=== PATIENT | female | born 1965 | race Caucasian/White ===

== ENCOUNTER → 2017-12-01 | Outpatient (CLI) | payer BC ==
[~2017-12-01] MED LIST: AMPH25CA PO; HYDR-4383 PO; METO25TA3 PO; MISC-573; RIZA10TA18 PO
--- NOTE | 2017-12-01 10:57 | DIAGNOSTIC IMAGING REPORT ---
CHEST 2 VIEWS ROUTINE CLINICAL HISTORY: PRE OP COMPARISON STUDY: No previous studies for comparison. FINDINGS: The bones soft tissues and hemidiaphragms are normal. The cardiomediastinal silhouette is normal. The lungs are clear. The pulmonary vasculature is normal. IMPRESSION: Negative chest. The above report was generated using voice recognition software. It may contain grammatical, syntax or spelling errors. Electronically signed by: Kurt Up M.D. 12/01/2017 10:55 AM Dictated Date/Time: 12/01/2017 10:55 AM
[2017-12-01 12:21] LABS: BASO % 0.3 %; BASO ABS # 0.02 K/uL (0-0.2); EOS % 5.5 %; EOS ABS # 0.35 K/uL (0-0.5); HEMATOCRIT 36.4 % (37-47); HEMOGLOBIN 11.8 g/dL (12.0-16.0); IG# 0.01 K/uL (0.00-0.02); LYMPH % 33.6 %; LYMPH ABS # 2.12 K/uL (1.2-3.4); MEAN CELL VOLUME 95.5 fL (80-100); MEAN CORPUSCULAR HGB CONC 32.4 g/dl (32-36); MEAN PLATELET VOLUME 10.5 fL (7.4-10.4); MONO % 7.1 %; MONO ABS # 0.45 K/uL (0.11-0.59); NEUT % 53.3 %; NEUT ABS # 3.36 K/uL (1.4-6.5); PLATELET COUNT 280 K/uL (130-400); RED CELL DISTRIBUTION WIDTH SD 52.2 fL (36.4-46.3); WHITE BLOOD COUNT 6.31 K/uL (4.8-10.8)
[2017-12-01 12:38] LABS: ALBUMIN 3.5 gm/dl (3.4-5.0); ALKALINE PHOSPHATASE 75 U/L (45-117); ALT/SGPT 21 U/L (12-78); AST/SGOT 14 U/L (15-37); BLOOD UREA NITROGEN 19 mg/dl (7-18); CALCIUM 8.6 mg/dl (8.5-10.1); CARBON DIOXIDE 28 mmol/L (21-32); CHOLESTEROL 205 mg/dl (0-200); CREATININE 0.79 mg/dl (0.60-1.20); GLUCOSE 77 mg/dl (70-99); LDL CHOLESTEROL CALCULATED 95 mg/dl; POTASSIUM 4.7 mmol/L (3.5-5.1); SODIUM 134 mmol/L (136-145); TOTAL PROTEIN 7.4 gm/dl (6.4-8.2)
== END | disposition home or self-care (01) ==
LOC: C.LAB 09:56
PROVIDERS: ATTEND Family Medicine
DX: I10 Essential (primary) hypertension (principal); E78.00 Pure hypercholesterolemia, unspecified; Z01.818 Encounter for other preprocedural examination

== ENCOUNTER 2017-12-09 06:14 | Inpatient (IN) | payer BC ==
[2017-11-30 15:38] VITALS: BMI 24.0
--- NOTE | 2017-12-08 16:01 | HISTORY & PHYSICAL EXAMINATION ---
DATE OF ADMISSION: 12/09/2017 CHIEF COMPLAINT: Back and lower extremity difficulty, paresthesias, weakness, and instability. She is being preoped for a posterior lumbar interbody fusion L4-L5. She has failed conservative care. She has had 6-9 months of pain, it is incapacitating. She has a completely degenerative segment at L4-L5 lumbar spine. PAST MEDICAL HISTORY: Hypertension, migraine. PAST SURGICAL HISTORY: . ALLERGIES: Negative. CURRENT MEDICATIONS: Include metoprolol. FAMILY HISTORY: Positive for rheumatoid; father with Sindhu Gehrig's disease. SOCIAL HISTORY: She is . Minimal alcohol. No tobacco. Active. REVIEW OF SYSTEMS: She has back hip pain. Denies any fevers, sweats, chills, weight loss, gain or malaise. Denies chest pain, palpitations. No asthma, wheezing. No nausea, vomiting or memory loss. She has back and musculoskeletal issues consistent with her diagnosis. OBJECTIVE: GENERAL: She is 5 feet 1 inches, 130 pounds, in distress. VITAL SIGNS: Blood pressure 120/80, pulse 80. HEENT: Essentially normal. CARDIAC: Normal S1, S2. LUNGS: Clear. ABDOMEN: Soft, nontender, no referred pain. Structural testing. She has profound decreased range of motion, pain with percussion, difficulty with ambulation. Hip: Normal. Knee examination: Normal. Pain on the buttock and lower extremities. No weakness. Slight sensory loss. MRI reviewed. Plain x-rays reviewed. She has a degenerative spinal segment L4-L5 of severity. IMPRESSION: Spinal stenosis and lumbar instability, L4-L5. PLAN: Includes a PLIF procedure, lumbar spine tomorrow at [facility] on 12/09/2017.
[2017-12-09] VITALS (9 sets, daily range): BP systolic 119–150; BP diastolic 67–98; PULSE 56–91; TEMP 36.4–36.7; O2SAT 94–100; Ht 154.9 cm; Wt 59.1 kg
[~2017-12-09] VITALS: Ht 154.9 cm; Wt 59.1 kg
[~2017-12-09 06:14] MED LIST changes: +CEFAZOLIN 2000MG IV PUSH 15 ML IV SCH; -HYDR-4383 PO; +LACTATED RINGER'S 1000ML 1,000 ML IV SCH; -MISC-573; +NSS 1000ML IV SCH
[2017-12-09] MEDS ORDERED: DEXAMETHASONE SOD INJ 4 MG/ML VIAL ONE (07:03)
[2017-12-09] MEDS ORDERED: PHENYLEPHRINE HCL INJ 10 MG/ML VIAL ONE (07:03)
[2017-12-09] MEDS ORDERED: PROPOFOL IV EMULSION 10 MG/ML 20 ML VIAL ONE (07:03)
[2017-12-09] MEDS ORDERED: GLYCOPYRROLATE INJ 0.2 MG/ML VIAL ONE (07:03)
[2017-12-09] MEDS ORDERED: ONDANSETRON INJ 2 MG/ML 2 ML VIAL ONE (07:03)
[2017-12-09] MEDS ORDERED: EpHEDrine SULFATE INJ 50 MG/ML AMP ONE (07:03)
[2017-12-09] MEDS ORDERED: SUCCINYLCHOLINE CHLORIDE 20 MG/ML 10 ML VIAL IV ONE (07:03)
[2017-12-09] MEDS ORDERED: NEOSTIGMINE METHYLSULFATE 5 MG/5 ML SYR ONE (07:03)
[2017-12-09] MEDS ORDERED: LIDOCAINE HCL 2% 2 ML VIAL (20MG/ML) ONE (07:03)
[2017-12-09] MEDS ORDERED: FENTANYL CITRATE INJ 50 MCG/1 ML 2 ML VIAL ONE ×2 (07:03→07:04)
[2017-12-09] MEDS ORDERED: MIDAZOLAM HCL 1 MG/ML 2ML VIAL ONE (07:04)
[2017-12-09] MEDS ORDERED: SCOPOLAMINE 1.5 MG TDSY TD ONE (07:10)
[2017-12-09] MEDS ORDERED: THROMBIN 5000 UNITS KIT ONE (07:12)
[2017-12-09] MEDS ORDERED: BUPIVACAINE/EPINEPHRINE 0.5% MPF 1:200,000 30 ML VIAL ONE (07:12)
[2017-12-09] MEDS ORDERED: GELATIN SPONGE SZ 100 ONE ×2 (07:12→09:53)
[2017-12-09] MEDS ORDERED: BACITRACIN 50000 UNIT VIAL ONE (07:12)
[2017-12-09] MEDS ORDERED: VANCOMYCIN HCL 1000MG/20ML VIAL ONE (07:12)
[2017-12-09] MEDS ORDERED: SCOPOLAMINE 1.5 MG TDSY TD SCH (07:15)
--- NOTE | 2017-12-09 07:19 | History & Physical Bridge Note ---
H&P Re-Evaluation Bridge Note: I have examined the patient, reviewed the History & Physical and in the interval since the performance of the History & Physical I have noted the following changes of clinical significance: No changes noted
[2017-12-09] MEDS ORDERED: THROMBIN FOR SOLN 20000 UNIT KIT ONE (07:33)
[2017-12-09] MEDS: CHECK SCOPOLAMINE PATCH PLACEMENT SCH ×3 (08:00→23:46)
[2017-12-09] MEDS ORDERED: HYDROmorphone INJ 2 MG/ML SYR/VIAL ONE (08:03)
[2017-12-09] MEDS ORDERED: PROMETHAZINE HCL INJ 12.5 MG in SODIUM CHLORIDE 0.9% 50ML 50 ML IV PRN ×2 (08:30→10:30)
[2017-12-09] MEDS ORDERED: FENTANYL CITRATE INJ 50 MCG/1 ML 2 ML VIAL IV PRN (08:30)
[2017-12-09] MEDS ORDERED: ATROPINE SULFATE 0.1 MG/ML 5ML SYR IV PRN (08:30)
[2017-12-09] MEDS ORDERED: HYDROmorphone INJ 1 MG/ML SYR IV PRN (08:30)
[2017-12-09] MEDS ORDERED: EpHEDrine SULFATE INJ 50 MG/ML AMP IV PRN (08:30)
[2017-12-09] MEDS ORDERED: ONDANSETRON INJ 2 MG/ML 2 ML VIAL IV PRN ×2 (08:30→10:30)
--- NOTE | 2017-12-09 10:07 | DIAGNOSTIC IMAGING REPORT ---
LUMBAR SPINE, INTRAOPERATIVE FLUOROSCOPY HISTORY: L4-5 decompression and fusion. FLUOROSCOPY TIME: 9 seconds. FINDINGS: Intraoperative fluoroscopy was provided for the lumbar spine. A single fluoroscopic spot image of the lower lumbar spine. Posterior decompression and fusion at L4-L5 with pedicle screws and rods. The hardware appears intact. IMPRESSION: Fluoroscopy provided for a L4-5 posterior decompression and fusion. Electronically signed by: Federico Cabrera M.D. 12/09/2017 10:06 AM Dictated Date/Time: 12/09/2017 10:05 AM
--- NOTE | 2017-12-09 10:15 | [facility] Post Operative Brief Note ---
Immediate Operative Summary Operative Date Dec 09, 2017. Pre-Operative Diagnosis Spinal stenosis and lumbar instability, L4-L5 Post-Operative Diagnosis Spinal stenosis and lumbar instability, L4-L5 Procedure(s) Performed L4-L5 Posterior Lumber Interbody Fusion with Instrumentation Surgeon Dr. Merchant Relief Driller Surgeon(s) Tj Maloney PA-C Estimated Blood Loss 100 ml Findings Consistent with Post-Op Diagnosis Specimens NONE per surgeon Anesthesia Type General Overlapping Procedure I was immediately available: during the entire case
[2017-12-09] MEDS ORDERED: SODIUM CHLORIDE 0.9% 1000ML 1,000 ML IV SCH (10:21)
[2017-12-09] MEDS ORDERED: LORAZEPAM INJ 1 MG in SYRINGE 0.5 ML IV PRN (10:30)
[2017-12-09] MEDS ORDERED: MAGNESIUM HYDROXIDE SUSP 30 ML UDC PO PRN (10:30)
[2017-12-09] MEDS ORDERED: NALOXONE HCL 0.4 MG/1 ML VIAL/CARP IV PRN (10:30)
[2017-12-09] MEDS ORDERED: LORAZEPAM 1 MG TAB PO PRN (10:30)
[2017-12-09] MEDS ORDERED: METOCLOPRAMIDE HCL INJ 5 MG/ML 2 ML VIAL IV PRN (10:30)
[2017-12-09] MEDS ORDERED: ACETAMINOPHEN 325 MG TAB PO PRN (10:30)
[2017-12-09] MEDS ORDERED: RIZATRIPTAN BENZOATE 10 MG TAB PO PRN (10:30)
[2017-12-09] MEDS ORDERED: HYDROmorphone HCL 0.5MG/ML 50 ML CASSETTE ONE (10:34)
--- NOTE | 2017-12-09 10:45 | OPERATIVE REPORT ---
DATE OF OPERATION: 12/09/2017 PREOPERATIVE DIAGNOSIS: Instability and degenerative changes, L4-L5. POSTOPERATIVE DIAGNOSIS: Same. PROCEDURES: Included 1. A 2-level laminectomy, L4-L5, foraminotomy, partial facetectomy. 2. Complete discectomy at L4-L5. 3. Posterior lumbar interbody fusion, L4-L5. 4. Pedicle screw instrumentation L4. 5. Posterior lateral fusion, L4-L5. COMPLICATIONS: Zero. BLOOD LOSS: 100 SURGEON: Jevon Merchant DO. CLINICAL COORDINATOR: Tj Maloney PA-C. IMPLANTS USED: Pitzi. DESCRIPTION OF PROCEDURE: Patient was taken to the operating room after informed consent. Placed prone, scrubbed, prepped, draped sterile. We made a skin incision, fascial incision, brought in C-arm. We could visualize the interspace of L4-L5. We did dissection down off the lamina, off the facet joints, and to the transverse processes bilaterally. We took off all soft tissue structures. We then harvested bone from the lamina of L4. Facet joints, redundant bone for bone bank. We had an ample amount of bone, I would estimate approximately 20 mL. We irrigated. We then went with the instrumentation case of the procedure safely getting pedicle screws into L5, L4 and verified on x-ray and on palpation. We then retracted the dura over from the right hand side, did almost complete discectomy at L4-L5. I was able to open this up to fit interbody device. The interbody device was from the Pitzi. It was 26 mm in length, it was 8 mm in height, it was 10 mm in width. This was packed with autograft. The interspace also packed with autograft and allograft. We then locked down the longitudinal reinaldo construct completing the stability. We bone grafted over the transverse processes. We irrigated thoroughly with at least 500 mL of fluid. We closed over a Hemovac drain and over vancomycin powder. We went with #1 Vicryl on the soft tissue, 2-0 in the subcuticular layer, 3-0 nylon on the skin. Sterile dressings applied. Patient was returned supine, extubated to PACU stable. I attest to the content of the Intraoperative Record and any orders documented therein. Any exception s are noted below.
--- NOTE | 2017-12-09 11:23 | Anesthesiology Progress Note ---
Anesthesia Post Op Note Date & Time Dec 09, 2017 at 11:23 Vital Signs Pain Intensity: 0 Vital Signs Past 12 Hours Date Time Temp Pulse Resp B/P (MAP) Pulse Ox O2 Delivery O2 Flow Rate FiO2 12/09/17 11:05 72 16 113/71 97 Room Air 12/09/17 10:55 87 16 119/72 97 Room Air 12/09/17 10:45 98 16 128/82 100 Oxymask 3 12/09/17 10:35 93 16 135/65 100 Oxymask 5 12/09/17 10:28 36.0 80 16 114/69 100 Oxymask 10 12/09/17 06:43 36.4 79 20 119/96 100 Room Air Notes Mental Status: alert / awake / arousable, participated in evaluation Pt Amnestic to Procedure: Yes Nausea / Vomiting: adequately controlled Pain: adequately controlled Airway Patency, RR, SpO2: stable & adequate BP & HR: stable & adequate Hydration State: stable & adequate Anesthetic Complications: no major complications apparent
[2017-12-09 11:41] LABS: HEMATOCRIT 29.9 % (37-47); HEMOGLOBIN 9.5 g/dL (12.0-16.0)
[2017-12-09] MEDS: SODIUM CHLORIDE 0.9% 1000ML 1,000 ML IV SCH ×2 (14:03→23:45)
[2017-12-09] MEDS: KETOROLAC TROMETHAMINE 30 MG/ML VIAL IV SCH ×2 (14:03→21:02)
[2017-12-09] MEDS: HYDROmorphone HCL 0.5MG/ML 50 ML CASSETTE IV PRN ×2 (14:57→23:13)
[2017-12-09] MEDS: DEXAMETHASONE INJ 10 MG in SYRINGE 0 ML IV SCH ×2 (15:30→23:46)
[2017-12-09] MEDS: CEFAZOLIN IV 1,000 MG in SYRINGE 0 ML IV SCH ×2 (15:30→23:45)
[2017-12-10] VITALS (7 sets, daily range): BP systolic 110–162; BP diastolic 68–87; PULSE 61–88; TEMP 36.7–37.4; O2SAT 96–100
[2017-12-10] MEDS: KETOROLAC TROMETHAMINE 30 MG/ML VIAL IV SCH ×3 (02:44→13:57)
[2017-12-10] MEDS ORDERED: NURSING VERBAL MED ORDER ONE (06:00)
[2017-12-10] MEDS ORDERED: BISACODYL 10 MG SUPP PR PRN (06:00)
[2017-12-10] MEDS ORDERED: BISACODYL 5 MG TABEC PO PRN (06:00)
[2017-12-10] MEDS: HYDROmorphone HCL 0.5MG/ML 50 ML CASSETTE IV PRN (06:54)
[2017-12-10] MEDS: DEXAMETHASONE INJ 10 MG in SYRINGE 0 ML IV SCH ×3 (07:53→23:21)
[2017-12-10] MEDS: CHECK SCOPOLAMINE PATCH PLACEMENT SCH ×3 (07:53→23:22)
[2017-12-10] MEDS: CEFAZOLIN IV 1,000 MG in SYRINGE 0 ML IV SCH (07:53)
[2017-12-10] MEDS ORDERED: HYDROmorphone INJ 2 MG/ML SYR/VIAL IV PRN (08:00)
[2017-12-10] MEDS ORDERED: DC PCA SCH (08:00)
[2017-12-10] MEDS ORDERED: OXYCODONE/ACETAMINOPHEN 5-325 TAB PO PRN (08:00)
[2017-12-10] MEDS: METOPROLOL SUCC 25MG EXT REL TAB PO SCH (08:21)
[2017-12-10] MEDS: POLYETHYLENE (MIRALAX) 17 GM PACK PO SCH (08:21)
--- NOTE | 2017-12-10 09:54 | Anesthesiology Progress Note ---
Anesthesia Post Op Note Date & Time Dec 10, 2017 at 09:52 Vital Signs Pain Intensity: 6.0 Vital Signs Past 12 Hours Date Time Temp Pulse Resp B/P (MAP) Pulse Ox O2 Delivery O2 Flow Rate FiO2 12/10/17 08:00 Room Air 12/10/17 07:38 36.7 68 17 136/68 (90) 99 Room Air 12/10/17 03:55 36.8 61 16 136/71 (92) 100 Room Air 12/09/17 23:40 Room Air 12/09/17 23:29 36.7 71 16 125/80 (95) 97 Room Air Notes Mental Status: alert / awake / arousable, participated in evaluation Pt Amnestic to Procedure: Yes Nausea / Vomiting: adequately controlled Pain: adequately controlled Airway Patency, RR, SpO2: stable & adequate BP & HR: stable & adequate Hydration State: stable & adequate Anesthetic Complications: no major complications apparent
[2017-12-10] MEDS: OXYCODONE/ACETAMINOPHEN 5-325 TAB PO PRN ×3 (13:12→23:22)
[2017-12-10] MEDS: HYDROmorphone INJ 1 MG/ML SYR IV PRN ×2 (16:06→21:51)
--- NOTE | 2017-12-10 17:24 | Discharge Instructions ---
Discharge Instructions Date of Service Dec 10, 2017. Admission Reason for Admission: Spinal Stenosis Discharge Discharge Diagnosis / Problem: same Discharge Goals Goal(s): Improve function Activity Recommendations Activity Limitations: as noted below Lifting Limitations: no more than 5 pounds Exercise/Sports Limitations: until after follow-up appointment May Resume Sexual Activity: after follow-up appointment Shower/Bathe: keep incision dry . Instructions / Follow-Up Instructions / Follow-Up MEDICATIONS: Please take your prescriptions as instructed at your pre-op appointment. SPECIAL CARE: The following information is intended to answer some of the common questions and concerns regarding your surgery. Each patient is an individual and receives individual counselling throughout the course of treatment, from diagnosis to surgery all the way through recovery. What follows is not an exhaustive list, but should be a useful guide to some of the common questions and concerns patients have regarding their surgeries. These are not provided to keep you from calling us; rather, they give you something accurate and concrete to reference as you recover from your procedure. If you need us, we are available to you. As always, if you are not sure about something, call us at [phone]. MEDICAL EMERGENCIES: For these conditions, call 911 or go to your local hospital-based Emergency Department - not [facility] or equivalent. * Paralysis * Severe chest pain or difficulty breathing * Swelling or redness of either leg Spine procedures can be rather complex and though complications are rare, they do occur. In such cases, effective advice regarding emergency situations cannot always be addressed over the telephone. You may be referred to the emergency department for more effective management of your problem. Activity Limitations: It is important to give your body time to heal, so please limit your activities : * In general, don't do anything that moves your spine too much. You should avoid contact sports, twisting or heavy lifting while you recover. * 5-10 pounds is all you should attempt to lift. * You should not plan on driving for approximately 3 weeks and you should avoid traveling more than 30-45 minutes at a time. Longer trips should be broken down with walking breaks spaced appropriately. * Physical therapy is not usually required. * Walking and good posture practices will help you recover and regain your function. * Avoid straining or sudden changes in position. * In general, the goal is to take it easy and recover. Don't cause any new problems. Just relax. Showers: * Do not take a bath, use a Jacuzzi or hot tub or otherwise submerge your incision. * It is usually safe to take a shower 4-5 days after your surgery. * Your incision does not require any special creams or ointments. * Simply clean it with soap and water, dry and re-dress with a clean bandage afterwards. Incision: * Keep incision clean, dry and protected until your first follow-up appointment. * Some amount of drainage and redness is normal. Any drainage should be fairly clear and not have a foul odor. * If you feel anything is wrong or you have excessive drainage, please call us. * Your stitches and ester will be removed 10-14 days after your surgery. At the time of your first post-op visit. * Neck surgeries are typically closed with a suture underneath the skin. The steri-strips over the incision should be maintained until we see you in the office. Bracing: * You may be provided with a back or neck brace to encourage good posture and prevent injury. It will remind you not to do too much as you heal and will alert others to the fact that you have had a surgery. * Back braces may be removed for showers and when you are resting at home. They must be worn when you are walking around for any period of time or for travel. * For neck surgery, you will likely be provided with two cervical collars. The soft collar ([place] or foam rubber) is worn most commonly throughout the day and while sleeping. The plastic collar (provided at the hospital) is for showering/bathing. * Except while eating, collars should remain in place. More specifically, bracing is provided for a purpose and should be worn. * Please obtain your brace or collars prior to your operation and bring them to the hospital with you on the day of surgery. * You should also bring your collars to your post-op appointment with Dr. Merchant. You should always take good care of your body and practice healthy habits, especially following surgery. You should: * Follow your doctor's treatment plan * Sit and stand properly with good posture (ears over shoulders, shoulders over hips) Don't slouch * Learn to lift correctly * Exercise regularly (low-impact aerobic exercise is especially good, but check with your doctor first) * Generally, be up and walking for 5-10 minutes at a time at least 3-4 times per day from the day you get home * Increasing walking to tolerance until you can walk for 20-30 minutes at a time * Attain and maintain a healthy body weight * Eat healthy foods ( a well-balanced, low-fat diet rich in fruits and vegetables) and get enough calcium * Avoid excessive use of alcohol When to call our office - If you notice any of the following: * Increased pain not relieve by pain medicine * Fevers greater then 100 degrees F, chills or flu symptoms * Increased redness around incision * Drainage from the incision that is not clear * Any foul smelling drainage * Swelling or fluid collection beneath the skin Miscellaneous: * In the hospital, you may be given a walker or cane for support while walking. These are temporary needs and are intended to prevent injuries due to falls. You may discontinue them when you feel strong and steady enough on your feet. * Sleep in a comfortable position. We find that many patients find a lounge chair or recliner with several pillows to be beneficial in the early post-operative period. * The support stockings should be used for 7-10 days and may be discontinued when you are back to walking more and conducting usual household activities. No problem is insignificant. We are here to help you and get you well. Contact us at [phone]. Definitions: Foraminotomy: If part of the disc or a bone spur (osteophyte) is pressing on a nerve as it leaves the vertebra (through an exit called the foramen), a foraminotomy may be done. Otomy means "to make an opening." A foraminotomy is making the opening of the foramen larger, so the nerve can exit without being compressed. Laminotomy: Similar to the foraminotomy, a laminotomy makes a larger opening, this time in your bony plate protecting your spinal canal and spinal cord (the lamina). The lamina may be pressing on your nerve, so the surgeon may make more room for the nerves using a laminotomy. Laminectomy: Sometimes, a laminotomy is not sufficient. The surgeon may need to remove all or part of the lamina. This procedure is called a laminectomy. This can often be done at many levels without any harmful effects. Current Hospital Diet Patient's current hospital diet: Regular Diet Discharge Diet Recommended Diet: Regular Diet Procedures Procedures Performed: L4-L5 Posterior Lumber Interbody Fusion with Instrumentation Pending Studies Studies pending at discharge: no Laboratory Results Lipid Panel Test 12/01/17 10:10 Range/Units Triglycerides Level 199 H 0-150 mg/dl Cholesterol Level 205 H 0-200 mg/dl HDL Cholesterol 70 mg/dl Cholesterol/HDL Ratio 2.9 LDL Cholesterol, Calculated 95 mg/dl Medical Emergencies . Who to Call and When: Medical Emergencies: If at any time you feel your situation is an emergency, please call 911 immediately. . Non-Emergent Contact Non-Emergency issues call your: Primary Care Provider . "Provider Documentation" section prepared by Jevon Merchant. .
[2017-12-10] MEDS ORDERED: HYDR-4383 PO (17:27)
[2017-12-10] MEDS ORDERED: MISC-573 (17:30)
[2017-12-11 06:05] VITALS: BP 136/78; PULSE 88; TEMP 36.9; O2SAT 96
[2017-12-11] MEDS: OXYCODONE/ACETAMINOPHEN 5-325 TAB PO PRN (07:49)
[2017-12-11] MEDS: CHECK SCOPOLAMINE PATCH PLACEMENT SCH (07:50)
[2017-12-11] MEDS: METOPROLOL SUCC 25MG EXT REL TAB PO SCH (07:50)
[2017-12-11] MEDS: POLYETHYLENE (MIRALAX) 17 GM PACK PO SCH (07:50)
--- NOTE | 2017-12-11 08:56 | DISCHARGE SUMMARY ---
Louann Chino is delightful. We operated on her 2 days ago. She is improved, stable. She has zero complaints, no chest pain or shortness of breath or extremity issues. Vital signs stable, completely afebrile, blood pressure controlled, wound clean. PLAN: Will discharge her home today. She has prescriptions on her chart. She has a followup. She has instructions and precautions, warnings all provided.
[2017-12-11 09:30] VITALS: BP 136/78; PULSE 88; TEMP 36.9; O2SAT 96
[2017-12-11 10:53] VITALS: BP 145/75; PULSE 100; O2SAT 98
== END 2017-12-11 10:55 | disposition home or self-care (01) | DRG 455 ==
LOC: C.ACU 06:14 → C.3E 06:36 → ENRESERV 10:51
PROVIDERS: ADMIT Orthopaedic Surgery Orthopaedic Surgery of the Spine; ATTEND Orthopaedic Surgery Orthopaedic Surgery of the Spine
PROC: 0SG0071 Fusion of Lumbar Vertebral Joint with Autologous Tissue Substitute, Posterior Approach, Posterior Column, Open Approach (ICD-10-PCS; principal; 2017-12-09 07:30)
PROC: 0ST20ZZ Resection of Lumbar Vertebral Disc, Open Approach (ICD-10-PCS; principal; 2017-12-09 07:30)
PROC: 0SG00AJ Fusion of Lumbar Vertebral Joint with Interbody Fusion Device, Posterior Approach, Anterior Column, Open Approach (ICD-10-PCS; principal; 2017-12-09 07:30)
DX: M53.2X6 Spinal instabilities, lumbar region (principal); M47.816 Spondylosis without myelopathy or radiculopathy, lumbar region; M48.061 Spinal stenosis, lumbar region without neurogenic claudication; I10 Essential (primary) hypertension; Z79.899 Other long term (current) drug therapy; Z82.61 Family history of arthritis

== ENCOUNTER 2022-07-22 05:09 | Observation (INO) ==
--- NOTE | 2022-06-30 14:35 | PAT Medication Instructions ---
Medication Instructions Date of Service June 30, 2022 Home Medications celecoxib 100 mg capsule (Celebrex) 100 mg PO QAM metoprolol succinate 25 mg tablet,extended release 24 hr 25 mg PO QAM alendronate 70 mg tablet 70 mg PO Q7D dextroamphetamine-amphetamine ER 30 mg 24hr capsule,extend release 30 mg PO QAM gabapentin 100 mg capsule 200 mg PO BID hydroxychloroquine 200 mg tablet 200 mg PO QAM omeprazole 20 mg capsule,delayed release 20 mg PO QAM rizatriptan 10 mg disintegrating tablet 10 mg PO UD PRN migraines sertraline 50 mg tablet 50 mg PO QAM tramadol 50 mg tablet 100 mg PO BID PRN Pain Continue as directed alendronate 70 mg tablet 70 mg PO Q7D ASK your surgeon for instructions celecoxib 100 mg capsule (Celebrex) 100 mg PO QAM ASK your prescriber and surgeon hydroxychloroquine 200 mg tablet 200 mg PO QAM DO NOT take the morning of surgery dextroamphetamine-amphetamine ER 30 mg 24hr capsule,extend release 30 mg PO QAM Take morning of surgery With a small sip of water, OTHERWISE NOTHING TO EAT OR DRINK AFTER MIDNIGHT: metoprolol succinate 25 mg tablet,extended release 24 hr 25 mg PO QAM gabapentin 100 mg capsule 200 mg PO BID omeprazole 20 mg capsule,delayed release 20 mg PO QAM rizatriptan 10 mg disintegrating tablet 10 mg PO UD PRN migraines (if needed) sertraline 50 mg tablet 50 mg PO QAM tramadol 50 mg tablet 100 mg PO BID PRN Pain (if needed) Take evening before surgery gabapentin 100 mg capsule 200 mg PO BID rizatriptan 10 mg disintegrating tablet 10 mg PO UD PRN migraines (if needed) tramadol 50 mg tablet 100 mg PO BID PRN Pain (if needed) Other Notes If you have any questions please call us at [phone] or [phone] or [phone] or [phone]
--- NOTE | 2022-07-02 12:18 | Anesthesiology Consultation ---
Date of Service July 02, 2022 Assessment & Plan (1) Encounter for pre-operative examination: - Outpatient joint assessment: Patient is currently scheduled for inpatient pathway. If re-evaluated pending system levels during current pandemic/surgeon requests outpatient pathway, patient is acceptable candidate for outpatient joint program from anesthesia standpoint pending surgeon's office assessment of pt motivation/support/completion of same day joint program preop requirements. Chart Review Chart Review: Acceptable Risk for Surgery and Patient seen in Pre Admission Testing Teaching & Discussion Pre-Anesthesia Teaching/Discussion Notes: Instructed NPO after midnight before surgery, except medications with 15 cc of water. Medication instructions provided according to the PAT guidelines. History Surgery Operation Date: 07/22/22 10:55 Proposed Procedures p Right Total Hip Arthroplasty - Zuhair Wilson MD Height/Weight Height: 4 ft 11 in Weight: 60.1 kg Allergies Allergy/AdvReac Type Severity Reaction Status Date / Time No Known Allergies Allergy Verified 07/02/22 11:16 Medications Home Medications Medication Instructions Recorded Confirmed Last Taken celecoxib 100 mg capsule (Celebrex) 100 mg PO QAM 06/15/22 07/02/22 Unknown metoprolol succinate 25 mg 25 mg PO QAM 06/15/22 07/02/22 Unknown tablet,extended release 24 hr alendronate 70 mg tablet 70 mg PO Q7D 06/30/22 07/02/22 Unknown dextroamphetamine-amphetamine ER 30 mg PO QAM 06/30/22 07/02/22 Unknown 30 mg 24hr capsule,extend release gabapentin 100 mg capsule 200 mg PO BID 06/30/22 07/02/22 Unknown hydroxychloroquine 200 mg tablet 200 mg PO QAM 06/30/22 07/02/22 Unknown omeprazole 20 mg capsule,delayed 20 mg PO QAM 06/30/22 07/02/22 Unknown release rizatriptan 10 mg disintegrating 10 mg PO UD PRN migraines 06/30/22 07/02/22 Unknown tablet sertraline 50 mg tablet 50 mg PO QAM 06/30/22 07/02/22 Unknown tramadol 50 mg tablet 100 mg PO BID PRN Pain 06/30/22 07/02/22 Unknown Past Medical History Medical History ADHD Anxiety GERD (gastroesophageal reflux disease) History of COVID-19 Hx of migraines Hypertension Osteopenia Rheumatoid arthritis Patient denies h/o stroke, seizures, heart attack, heart failure, DM, blood clots or blood transfusions. Exercise / Class Metabolic Activity II 4-5 Yardwork/Stairs/Walk up hill (denies chest discomfort or shortness of breath with 1 FOS) Past Surgical History Surgical History History of endometrial ablation History of lumbar surgery History of open reduction and internal fixation (ORIF) procedure Hx of section Hx of colonoscopy Past Anesthesia History No Hx of Anesthesia Complications and No Family Hx of Anesthesia Complications History of PONV No Hx of PONV and No Hx of Motion Sickness Social History Smoking Status: Never smoker Do You Dip or Chew Tobacco: No Hx Alcohol Use: Yes Alcohol type: beer alcohol intake frequency: 0-2 drinks per day Hx Substance Use: No substance use type: does not use Review of Systems Patient denies chest pain, shortness of breath, dyspnea on exertion, snoring, witnessed apneas, fever, chills, cough, wheezing, or palpitations. Physical Exam Vital Signs Vitals BP 123/85 P 73 TEMP 97.6 SP02 100% on RA RESP 17 Physical Full cervical extension range of motion without pain TMD 3.5 finger breadths Mallampati Score 2 Dentition: intact, denies chipped or loose teeth, caps/crowns, implants or bridges Lungs: normal respiratory effort. Clear throughout to auscultation, no adventitious breath sounds Cardiac: regular rate and rhythm, no murmurs noted Carotid arteries: negative bruit bilat Lab Results Anesthesia Preop Results Results Anesthesia Widget: WBC 4.55 K/ul (4.8-10.8) L 07/02/22 Hgb 12.9 g/dl (12.0-16.0) 07/02/22 Hct 38.8 % (37.0-47.0) 07/02/22 Plt 270 K/uL (130-400) 07/02/22 Na 136 mmol/L (136-145) 07/02/22 K 4.1 mmol/L (3.5-5.1) 07/02/22 Cl 100 mmol/L (98-107) 07/02/22 CO2 30 mmol/L (21-32) 07/02/22 BUN 13 mg/dl (6-23) 07/02/22 Creat 0.67 mg/dl (0.6-1.2) 07/02/22 Glucose Level 80 mg/dl (70-99(Fasting)) 07/02/22 PT 10.4 Seconds (9.0-12.0) 07/02/22 PTT 26.5 Seconds (21.0-31.0) 07/02/22 INR 1.0 (0.9-1.1) 07/02/22 Blood Type A Positive 07/02/22 Antibody Screen NEGATIVE 07/02/22 Testing Electrocardiogram Date: 07/02/22 NSR, rate [address] and T wave abnormality Chest X-Ray Date: 07/02/22 No lines and tubes are seen. The cardiomediastinal silhouette is normal. The lungs are clear. No evidence of pleural effusion or pneumothorax. IMPRESSION: No acute chest disease. Cervical Spine Date: 07/02/22 The alignment remains unchanged with flexion. The C3-C4 anterolisthesis reduces to a normal alignment on the extension view. There is also a 2 mm of retrolisthesis of C4 on C5 on the extension view only. COVID-19 Risk Screen Screening Information COVID-19 Screen Date: 07/02/22 Exposure 21 Days Family/Household +COVID Last 21 Days: No Exposure 10 Days Any COVID Exposure Last 10 Days: No Symptoms Last 10 Days Experienced COVID Sx Last 10 Days: No + COVID 0-90 Days COVID + in Last 0-90 Days: No
[2022-07-22] MEDS ORDERED: CeleBREX 200 MG CAP PO SCH (06:00)
[2022-07-22] MEDS ORDERED: ACETAMINOPHEN 500 MG TAB PO SCH (06:00)
[2022-07-22] MEDS ORDERED: FAMOTIDINE 20 MG TAB PO SCH (06:00)
[2022-07-22] MEDS ORDERED: LR 500ML BOLUS, THEN 15ML/HR IV SCH (06:00)
[2022-07-22] MEDS ORDERED: ceFAZolin 2000MG 2,000 MG/15 ML SYR IV SCH (06:00)
[2022-07-22] MEDS ORDERED: METOCLOPRAMIDE HCL 10 MG TABLET PO SCH (06:00)
[2022-07-22] MEDS ORDERED: LR 60ML/HR IV SCH (06:00)
[2022-07-22] MEDS ORDERED: BUPIVACAINE 0.5 % 5 MG/1 ML PF 10ML VIAL ONE (06:21)
[2022-07-22] MEDS ORDERED: MIDAZOLAM HCL 1 MG/ML 2ML VIAL ONE (06:27)
[2022-07-22] MEDS ORDERED: MoRPHine SULFATE PF 1 MG/ML 10 ML AMP/VIAL ONE (06:44)
[2022-07-22] MEDS ORDERED: TRANEXAMIC ACID / 0.7% NACL 1000MG/100ML BAG IV ONE (06:48)
[2022-07-22] MEDS ORDERED: ROPIVACAINE 0.5% 5 MG/ML 30 ML VIAL ONE (06:50)
[2022-07-22] MEDS ORDERED: BUPIVACAINE/EPINEPHRINE 0.5% MPF 1:200,000 30 ML VIAL ONE (06:52)
--- NOTE | 2022-07-22 06:58 | History & Physical Bridge Note ---
Date of Service July 22, 2022 History & Physical Bridge Note I have examined the patient, reviewed the History & Physical and in the interval since the performance of the History & Physical I have noted the following changes of clinical significance: no changes noted
[2022-07-22] MEDS ORDERED: MEPERIDINE HCL 25 MG/ML CARP/VIAL IV PRN (07:03)
[2022-07-22] MEDS ORDERED: ePHEDrine sulfate 50 MG/ML AMP IV PRN (07:03)
[2022-07-22] MEDS ORDERED: NALOXONE HCL 0.4 MG/1 ML VIAL/CARP IV PRN ×2 (07:03→11:33)
[2022-07-22] MEDS ORDERED: ONDANSETRON INJ 2 MG/ML 2 ML VIAL IV PRN (07:03)
[2022-07-22] MEDS ORDERED: MoRPHine SULFATE PF 1 MG/ML 10 ML AMP/VIAL INT SPINAL ONE (07:03)
[2022-07-22] MEDS ORDERED: NALOXONE HCL 1 MG in SODIUM CHLORIDE 0.9% 1000ML 1,000 ML IV PRN (07:03)
[2022-07-22] MEDS ORDERED: LACTATED RINGER'S 500 ML IV PRN (07:03)
[2022-07-22] MEDS ORDERED: KETOROLAC 30 MG/ML VIAL IV PRN (07:03)
[2022-07-22] MEDS ORDERED: PROMETHAZINE HCL 6.25 MG in SODIUM CHLORIDE 0.9% 50 ML IV PRN (07:03)
[2022-07-22] MEDS ORDERED: NALBUPHINE HCL INJ 10 MG/ML AMP IV PRN (07:03)
[2022-07-22] MEDS ORDERED: NALOXONE HCL 0.08 MG in SYRINGE 1.8 ML IV PRN (07:03)
[2022-07-22] MEDS ORDERED: diphenhydrAMINE 50 MG/ML VIAL IV PRN (07:03)
[2022-07-22] MEDS ORDERED: DC INTRASPINAL MORPHINE SCH (07:15)
[2022-07-22] MEDS ORDERED: SODIUM CHLORIDE 0.9% 1000ML 1,000 ML IV SCH (07:15)
[2022-07-22] MEDS ORDERED: NO NARCOTICS OR SEDATIVES SCH (07:15)
[2022-07-22] MEDS ORDERED: PROPOFOL IV EMULSION 10 MG/ML 20 ML VIAL IV ONE (07:38)
[2022-07-22] MEDS ORDERED: ONDANSETRON INJ 2 MG/ML 2 ML VIAL ONE (07:38)
[2022-07-22] MEDS ORDERED: LIDOCAINE 2% MPF LOCAL 5 ML VIAL ONE (07:38)
[2022-07-22] MEDS ORDERED: DEXAMETHASONE SOD INJ 4 MG/ML VIAL ONE (07:38)
[2022-07-22] MEDS ORDERED: PHENYLEPHRINE HCL 10 MG/ML VIAL ONE (08:23)
--- NOTE | 2022-07-22 08:54 | Operative Report ---
PG Post Operative Report Pre & Post Diagnosis Operation Date: 07/22/22 07:00 Pre-Op Diagnosis: Right Hip Degeneative Joint Disease Post-Op Diagnosis: Right Hip Degeneative Joint Disease I identified the patient and participated in the time-out.: Yes Procedure Operation Date: 07/22/22 07:00 Actual Procedures p Right Total Hip Arthroplasty(Right) - Zuhair Wilson MD Surgeon Zuhair Wilson MD Tooling Inspector Ashley Sierra PA-C Estimated Blood Loss 200 Findings Consistent with Post-Op Diagnosis Operative findings revealed advanced right hip arthritis. She did have full- thickness cartilage loss of the femoral head cartilage superiorly. Not much in the way of osteophytes. She did have anterior acetabular wall deficiency. She had a fairly significant hip joint effusion. Specimens Right femoral head sent for pathology Anesthesia Type Spinal MAC Complications none Disposition Accompanied Patient To Recovery: No Indications Patient is a 56-year-old female whose had about a year history of gradual progressive increased right hip pain discomfort unresponsive conservative treatment. X-rays show progressive hip arthritis. She failed conservative measures and elected proceed with total hip arthroplasty. Of note, the patient's had previous spine fusion and had fairly good mobility of her hip and instability postoperative was a concern. We did plan to do all we could to maximize her stability. Description of Procedure Operative implants consist of: 1 Biomet G7 size 50 mm acetabular shell. 2. 6.5 cancellous acetabular screws 135 mm length 1.5 mm length. 3. Wales eliminator. 4. Highly cross-linked polyethylene liner with a 50 mm outer diameter 36 mm diameter. 5. DePuy Corail size 10 KLA femoral stem. 6. +5/36 mm ceramic articular ball. The patient was taken the operating, identified, placed on the operating table supine position protectors were properly padded. IV antibiotics tried by anesthesia team. A spinal anesthetic and been implemented holding area. Hinton catheter was placed in sterile fashion. The patient then placed in the left lateral cubitus position. An x-ray was placed. Stulberg hip positioner was used for positioning. The right hip and leg were then prepped and draped in usual sterile fashion. A posterolateral approach to the right hip was then performed through a curvilinear incision centered over the greater trochanter. Sharp dissection Through subcutaneous tissue down below the IT band gluteal fascia the IT band gluteal fascia incised longitudinally in line with skin incision. The underlying greater bursa was excised. The piriformis and external rotators along with the posterior hip joint capsule were then released from the posterior aspect hip as a single layer. Great care was taken throughout the procedure protect the sciatic nerve at all times. Hip was internally rotated and dislocated. A femoral neck osteotomy cut was made with Final Cut about 5 to 6 mm above the lesser trochanter. Femoral head was removed and sent for pathology. The femur was retracted anteriorly. Attention drawn the acetabulum. The acetabulum was excised. Pulmonary fat was excised. Sequential reaming the ASCAD was then performed again with size 43 and progressing up to 49. I did ream a little bit with a 50 reamer and then placed a 50 mm cup. We did try to get the 50 In order to get a bigger head to in order to maximize her stability. The cup was then secured with 2 screws. Trial liner was placed. Attention drawn the femur. The proximal femur was entered with a [employer] cutter followed by canal finder. I then broached beginning size 8 and progressing up to 10. Excellent fit of the tendon. Had excellent proximal fit. I did think I could put a bigger broach in. We then trialed with a standard and the short offset neck. With a short neck or soft tissue tension was pretty lax and I was concerned about her stability. Therefore we elected to use the standard KLA stem size 10. Was fully stable for extension and external rotation flexion to 90 degrees internal rotation over 60 degrees. All trial implants were removed. Wales eliminator was placed cross-linked polyethylene liner was placed. A size 10 KLA femoral stem was impacted in position. A +5/36 mm ceramic articular ball was placed. Hip was located once again found to be stable. Attention drawn to closing. Wounds irrigated cosigns pulsatile lavage solution. I did inject locally with 60 cc of Marcaine with epinephrine. The posterior capsule and external rotators were then repaired through drill holes in the posterior trochanter with #2 Tycron suture. The IT band gluteal fascia then closed in 1 PDS suture in a running fashion for subcutaneous tissues then closed in 2 layers the deep layer #1 Vicryl suture subcutaneous tissues with 2-0 Dexon suture in a buried interrupted fashion the skin was closed skin ester. Legs then cleaned and dried and sterile dressed with Xeroform, 4 fours, ABD pad, foam tape was applie d. Patient then transferred to the recovery in stable condition. Patient tolerated procedure well and there are no complications. Mc Sierra, my physician veterinary technician assistant, was present for the entire procedure. His assistance was essential and required for appropriate patient positioning, prepping and draping, surgical exposure, performing the technical details of the operation, placement the implants, closure of the wound, and placement of the sterile bandage. I attest to the content of the Intraoperative Record and any orders documented therein. Any exceptions are noted below.
--- NOTE | 2022-07-22 10:24 | XRay Report ---
XR hip 1V RT w pelvis CLINICAL HISTORY: IN PACU - Post Surgical TECHNIQUE: 2 views of the right hip and single frontal view of the pelvis were obtained. Comparison: Comparison is made to right hip radiograph 06/15/2022 FINDINGS: Patient is status post total hip arthroplasty with expected postsurgical changes including soft tissu e swelling and subcutaneous emphysema. IMPRESSION: Expected postoperative appearance status post placement of total hip arthroplasty. ACT 112: Negative or not required by law. Electronically signed by: Kamlesh Meier M.D. 07/22/2022 10:23 AM
[2022-07-22] MEDS ORDERED: DOCUSATE SODIUM/SENNA 50/8.6MG TAB PO SCH (11:33)
[2022-07-22] MEDS ORDERED: bisacodyL 10 MG SUPP PR PRN (11:33)
[2022-07-22] MEDS ORDERED: MAGNESIUM HYDROXIDE SUSP 30 ML UDC PO PRN (11:33)
[2022-07-22] MEDS ORDERED: ALUMINUM/MAGNESIUM SUSP 30 ML UDC PO PRN (11:33)
[2022-07-22] MEDS ORDERED: RIZATRIPTAN BENZOATE 10 MG TAB PO PRN (11:43)
[2022-07-22] MEDS ORDERED: KETOROLAC 30 MG/ML VIAL IV SCH (12:00)
[2022-07-22] MEDS ORDERED: dexAMETHasone 10 MG in SYRINGE 0 ML IV ONE (12:00)
--- NOTE | 2022-07-22 12:20 | Anesthesiology Progress Note ---
Date of Service July 22, 2022 Anesthesia Post Procedure Vital Signs Vital Signs: Temp Pulse Pulse Resp BP BP Pulse Ox 07/22/22 11:33 36.5 C 53 L 18 101/66 98 07/22/22 11:15 36.4 C L 55 L 16 99/63 L 96 07/22/22 10:45 36.3 C L 57 L 16 102/67 95 07/22/22 10:05 59 L 13 101/57 L 96 07/22/22 09:55 36.3 C L 58 L 20 102/67 96 07/22/22 09:45 59 L 18 92/56 L 95 07/22/22 09:35 61 14 98/56 L 95 07/22/22 09:25 62 14 97/53 L 96 07/22/22 09:15 61 16 102/51 L 98 07/22/22 09:05 63 16 99/61 L 100 07/22/22 08:55 64 22 96/57 L 100 07/22/22 08:45 36.2 C L 58 L 12 96/58 L 100 07/22/22 05:43 36.5 C 59 L 20 132/70 100 O2 Del Method O2 Flow Rate 07/22/22 11:33 Room Air 07/22/22 11:15 Room Air 07/22/22 10:45 Room Air 07/22/22 10:05 Room Air 07/22/22 09:55 Room Air 07/22/22 09:45 Room Air 07/22/22 09:35 Room Air 07/22/22 09:25 Room Air 07/22/22 09:15 Room Air 07/22/22 09:05 Oxymask 4 07/22/22 08:55 Oxymask 6 07/22/22 08:45 Oxymask 6 07/22/22 05:43 Room Air Pain Intensity Right Hip: Pain Intensity: 8 Transfer of Care Handoff Completed per policy Notes Mental Status: alert / awake / arousable Patient Amnestic to Procedure: Yes Nausea / Vomiting: adequately controlled Pain: adequately controlled Airway Patency, RR, SpO2: stable & adequate BP & HR: stable & adequate Hydration State: stable & adequate Neuraxial Anesthesia: was administered and sensory block is resolving Anesthetic Complications: no major complications apparent
[2022-07-22] MEDS: SODIUM CHLORIDE 0.9% 1000ML 1,000 ML IV SCH ×2 (12:52→22:55)
[2022-07-22] MEDS: ceFAZolin 1000MG 1,000 MG/7.5 ML SYR IV SCH ×2 (12:53→22:55)
[2022-07-22] MEDS: MULTIVITAMIN TAB PO SCH (12:55)
[2022-07-22] MEDS: ASPIRIN 81 MG ECTAB PO SCH ×2 (12:56→20:50)
[2022-07-22] MEDS: PANTOprazole 40 MG TAB PO SCH (12:56)
[2022-07-22] MEDS: DOCUSATE SODIUM 100 MG CAP PO SCH ×2 (12:56→20:48)
[2022-07-22] MEDS: HYDROXYCHLOROQUINE SULFATE 200 MG TAB PO SCH (12:58)
[2022-07-22] MEDS: METOPROLOL SUCC 25MG EXT REL TAB PO SCH (12:58)
[2022-07-22] MEDS: SERTRALINE HCL 50 MG TABLET PO SCH (12:58)
[2022-07-22] MEDS: GABAPENTIN 100 MG CAP PO SCH ×2 (12:59→20:48)
[2022-07-22] MEDS: ACETAMINOPHEN 500 MG TAB PO SCH ×2 (12:59→22:55)
[2022-07-22] MEDS ORDERED: TRANEXAMIC ACID / 0.7% NACL 1,000 MG/100 ML BAG IV SCH (15:00)
[2022-07-22] MEDS: ASCORBIC ACID 500 MG TAB PO SCH (16:18)
[2022-07-22] MEDS ORDERED: diphenhydrAMINE Capsule 25 MG CAP ONE (16:23)
[2022-07-22] MEDS ORDERED: SENNA 8.6 MG TAB PO SCH (21:00)
[2022-07-23] MEDS ORDERED: ONDANSETRON INJ 2 MG/ML 2 ML VIAL IV PRN (01:03)
[2022-07-23] MEDS ORDERED: HYDROmorphone INJ 0.5 MG/0.5 ML SYR IV PRN (01:03)
[2022-07-23] MEDS ORDERED: diphenhydrAMINE Capsule 25 MG CAP PO PRN (01:05)
[2022-07-23] MEDS ORDERED: METOCLOPRAMIDE HCL INJ 5 MG/ML 2 ML VIAL IV PRN (01:05)
[2022-07-23] MEDS: KETOROLAC 30 MG/ML VIAL IV SCH ×2 (05:40→12:28)
[2022-07-23] MEDS: ACETAMINOPHEN 500 MG TAB PO SCH ×2 (05:41→13:42)
[2022-07-23] MEDS ORDERED: DEXTROAMPHETAMINE/AMPHETAMINE ER 5 MG CAP PO SCH (07:00)
[2022-07-23] MEDS ORDERED: AMPHETAMINE ASP/SULF/DEXTRAMPH ER 20 MG CAP PO SCH (07:00)
[2022-07-23] MEDS: oxyCODONE HCL IR 5 MG TAB (IMMEDIATE RELEASE) PO PRN ×2 (07:27→13:41)
[2022-07-23] MEDS: ASPIRIN 81 MG ECTAB PO SCH (08:26)
[2022-07-23] MEDS: DOCUSATE SODIUM 100 MG CAP PO SCH (08:26)
[2022-07-23] MEDS: GABAPENTIN 100 MG CAP PO SCH (08:27)
[2022-07-23] MEDS: ASCORBIC ACID 500 MG TAB PO SCH (08:28)
[2022-07-23] MEDS: PANTOprazole 40 MG TAB PO SCH (08:28)
[2022-07-23] MEDS: SERTRALINE HCL 50 MG TABLET PO SCH (08:28)
[2022-07-23] MEDS: MULTIVITAMIN TAB PO SCH (08:28)
[2022-07-23] MEDS: METOPROLOL SUCC 25MG EXT REL TAB PO SCH (08:28)
[2022-07-23] MEDS: HYDROXYCHLOROQUINE SULFATE 200 MG TAB PO SCH (08:29)
[2022-07-23 08:39] LABS: Basophils # (auto) 0.02 K/uL (0-0.2); Basophils % (auto) 0.2 %; Hematocrit (blood only) 24.2 % (37.0-47.0); Hemoglobin 8.1 g/dl (12.0-16.0); Immature Granulocytes # (auto) 0.02 K/uL (0.01-0.20); Immature Granulocytes % (auto) 0.2 %; Lymphocytes % (auto) 12.2 %; Mean Corpuscular Hgb Conc 33.5 g/dL (32.0-36.0); Mean Corpuscular Volume 95.7 fL (80.0-100.0); Mean Platelet Volume 9.8 fL (9.4-12.4); Monocytes # (auto) 0.93 K/uL (0.11-0.59); Monocytes % (auto) 9.5 %; Neutrophils # (auto) 7.67 K/uL (1.40-6.50); Neutrophils % (auto) 77.9 %; Platelet Count 219 K/uL (130-400); RDW Coefficient of Variation 12.8 % (11.5-14.5); Red Blood Count 2.53 M/uL (4.20-5.40); White Blood Count 9.84 K/ul (4.8-10.8)
[2022-07-23 08:52] LABS: BUN Creatinine Ratio 25.9 (10-20); Calcium 8.1 mg/dl (8.6-10.3); Creatinine Clr Calc Pharmacy 85.2 ml/min; Est GFR (African American) 118.6 ml/min; Est GFR (Non-African American) 102.3 ml/min; Potassium 3.5 mmol/L (3.5-5.1)
--- NOTE | 2022-07-23 11:18 | Progress Notes ---
DATE OF SERVICE: 07/23/2022. SUBJECTIVE: A 56-year-old female, postoperative day 1 from a right hip replacement. She is doing pr carol well. Really not much in the way of pain. No chest pain or shortness of breath. Not feeling d stefan or lightheaded. OBJECTIVE: VITAL SIGNS: Temperature 36.3. Vital signs are stable. GENERAL: Shows a pleasant middle-aged female. She is sitting up in her bed, looks pretty comfortabl e. LUNGS: Clear to auscultation. HEART: Regular rate and rhythm. ABDOMEN: Soft, nontender, nondistended. EXTREMITIES: Grossly neurovascularly intact except as follows. Examination of the right hip reveals the leg lengths to be equal. Her dressing is clean, dry and int act. Thigh is soft and supple. She is neurologically intact. LABORATORY DATA: Hemoglobin 8.1. Hematocrit 24.2. Electrolytes are stable. ASSESSMENT: A 56-year-old female, postoperative day 1 from a right hip replacement, doing pretty wel l. Pain is controlled. Hip is located. She is neurologically intact. She is anemic, but without s ymptoms. PLAN: 1. DVT prophylaxis includes thigh-high TEDs, SCDs, and aspirin twice a day. 2. PT/OT, weightbear as tolerated. Left total hip protocol. 3. Pain control, doing okay with current pain regimen. 4. Disposition: Discharge to home hopefully today after therapy depending on how she does in therap y, with home health. Job ID: [id number]
--- NOTE | 2022-07-25 20:15 | Discharge Summary ---
Date of Service July 25, 2022 Discharge Data Procedures Performed Operation Date: 07/22/22 07:00 Actual Procedures p Right Total Hip Arthroplasty(Right) - Zuhair Wilson MD Hospital Course (1) S/P total right hip arthroplasty: This is a 56 year old patient admitted on 07/22/22 and underwent total hip arthroplasty. She tolerated the procedure well and there were no complications. Transferred to the PACU post op and later to the orthopedic floor for further care. She was given ancef for antibiotic prophylaxis. She was also given BENTLEY stockings, SCDs, and aspirin for DVT prophylaxis. Hemoglobin, hematocrit, and vital signs were monitored during her hospital stay and remained stable. Did not require any blood transfusions. There were no complications during her hospital stay. By post op day #1 the patient was tolerating a regular diet, pain was reasonably controlled with oral pain medicine, and he was participating in physical therapy. On post op day #1 the patient was discharged home and set up with home health care. She was given printed discharge instructions including prescriptions for extra strength tylenol, aspirin,ketorolac, zofran, senokot, and oxycodone. Continue hip precautions. Continue physical therapy, weight bearing as tolerated. Continue BENTLEY stockings. Follow up approximately 2 weeks post op or sooner if there are problems or concerns. Coding Level of Care Code None Diagnoses S/P total right hip arthroplasty Z96.641
== END 2022-07-23 14:15 | disposition home health service (06) ==
LOC: 3E 05:09 → ASU 05:09

== ENCOUNTER 2024-11-22 06:38 | Inpatient (IN) ==
--- NOTE | 2024-11-10 12:55 | PAT Medication Instructions ---
Medication Instructions Date of Service November 10, 2024 Home Medications metoprolol succinate 25 mg tablet,extended release 24 hr 25 mg PO QAM alendronate 70 mg tablet (Fosamax) 70 mg PO Q7D dextroamphetamine-amphetamine ER 30 mg 24hr capsule,extend release (Adderall XR) 30 mg PO QAM hydroxychloroquine 200 mg tablet 200 mg PO QAM omeprazole 20 mg capsule,delayed release 20 mg PO QAM rizatriptan 10 mg disintegrating tablet 10 mg PO UD PRN migraines sertraline 50 mg tablet (Zoloft) 50 mg PO QAM acetaminophen 500 mg capsule 1,000 mg PO TID PRN Pain amoxicillin 500 mg tablet 2,000 mg PO ONCE PRN Dental Procedures celecoxib 200 mg capsule 400 mg PO QAM Continue as directed amoxicillin 500 mg tablet 2,000 mg PO ONCE PRN Dental Procedures (if needed) ASK your surgeon for instructions celecoxib 200 mg capsule 400 mg PO QAM ASK your prescriber and surgeon alendronate 70 mg tablet (Fosamax) 70 mg PO Q7D hydroxychloroquine 200 mg tablet 200 mg PO QAM DO NOT take the morning of surgery dextroamphetamine-amphetamine ER 30 mg 24hr capsule,extend release (Adderall XR) 30 mg PO QAM Take morning of surgery With a small sip of water, OTHERWISE NOTHING TO EAT OR DRINK AFTER MIDNIGHT: metoprolol succinate 25 mg tablet,extended release 24 hr 25 mg PO QAM omeprazole 20 mg capsule,delayed release 20 mg PO QAM rizatriptan 10 mg disintegrating tablet 10 mg PO UD PRN migraines (if needed) sertraline 50 mg tablet (Zoloft) 50 mg PO QAM acetaminophen 500 mg capsule 1,000 mg PO TID PRN Pain (if needed) Take evening before surgery rizatriptan 10 mg disintegrating tablet 10 mg PO UD PRN migraines (if needed) acetaminophen 500 mg capsule 1,000 mg PO TID PRN Pain (if needed) Other Notes If you have any questions please call us at [phone] or [phone] or [phone] or [phone]
--- NOTE | 2024-11-14 08:35 | Anesthesiology Consultation ---
Date of Service November 14, 2024 Assessment & Plan (1) Encounter for pre-operative examination: Chart Review Chart Review: Acceptable Risk for Surgery and Patient seen in Pre Admission Testing - Please fax c-spine results to PCP for continuity of care- [facility] - Patient is NOT an OPJ candidate due to type of procedure - current SDA Per PAT appt on 11/14/24, no recent illness/disease exposures, illness related symptoms, or recent illness/disease positive tests. Will leave to surgeon's discretion if preop Covid testing needed Right DAVID 07/22/22= Done under SAB at L3-4. Teaching & Discussion Pre-Anesthesia Teaching/Discussion Notes: Instructed NPO after midnight before surgery,except medications with 15 cc of water. Medication instructions provided according to the PAT guidelines. History Surgery Operation Date: 11/22/24 10:40 Proposed Procedures p Revision Right Hip Arthroplasty with Constrained Liner - Zuhair Wilson MD Height/Weight Height: 4 ft 11 in Weight: 63.6 kg Allergies Allergy/AdvReac Type Severity Reaction Status Date / Time No Known Allergies Allergy Verified 11/10/24 11:49 Medications Home Medications Medication Instructions Recorded Confirmed Last Taken metoprolol succinate 25 mg 25 mg PO QAM 06/15/22 11/10/24 07/22/22 04:15 tablet,extended release 24 hr dextroamphetamine-amphetamine ER 30 mg PO QAM 06/30/22 11/10/24 07/21/22 10:30 30 mg 24hr capsule,extend release (Adderall XR) hydroxychloroquine 200 mg tablet 200 mg PO QAM 06/30/22 11/10/24 07/21/22 10:30 omeprazole 20 mg capsule,delayed 20 mg PO QAM 06/30/22 11/10/24 07/21/22 22:00 release rizatriptan 10 mg disintegrating 10 mg PO UD PRN migraines 06/30/22 11/10/24 07/08/22 tablet sertraline 50 mg tablet (Zoloft) 50 mg PO QAM 06/30/22 11/10/24 07/21/22 10:00 acetaminophen 500 mg capsule 1,000 mg PO TID PRN Pain 11/10/24 11/10/24 Unknown amoxicillin 500 mg tablet 2,000 mg PO ONCE PRN Dental 11/10/24 11/10/24 Unknown Procedures celecoxib 200 mg capsule 400 mg PO QAM 11/10/24 11/10/24 Unknown Past Medical History Medical History ADHD Anxiety GERD (gastroesophageal reflux disease) controlled, stable per pt Hip dislocation, right x3 - reason for revision 11/22/24 History of COVID-19 early 04/2022, home test, not hosp; fatigue, "brain fog">resolved w/occasional "brain fog"-tx w/paxlovid Hx of migraines Occasionally Hypertension controlled, stable per pt Osteopenia Rheumatoid arthritis Follows with rheum- [place] [facility] Exercise / Class Metabolic Activity II 4-5 Yardwork/Stairs/Walk up hill (one flight of stairs - no chest pain or SOB ) Past Surgical History Surgical History History of arthroplasty of right hip 07/2022 History of endometrial ablation History of lumbar surgery 12/09/17 posterior lumbar interbody fusion L4-5 Grade 1 view, MCA 3, ETT 7.5. - hardware present History of open reduction and internal fixation (ORIF) procedure Right Ankle - Hardware present Hx of section x1 1996 Hx of colonoscopy Past Anesthesia History No Hx of Anesthesia Complications and No Family Hx of Anesthesia Complications (with exception to mother- PONV ) History of PONV No Hx of PONV (no significant issues known) and Hx of Motion Sickness Social History Smoking Status: Never smoker Do You Dip or Chew Tobacco: No Hx Alcohol Use: No Alcohol type: beer alcohol intake frequency: 0-2 drinks per day (1-2 beers/daily) Hx Substance Use: No substance use type: does not use Review of Systems - Mild cough- x months- stable Patient denies chest pain, shortness of breath at rest, wheezing, palpitations. No hx of seizures, stroke, PA, apnea/snoring. No hx of blood clots or blood transfusions Physical Exam Vital Signs VITALS BP 142/84 P 60 TEMP 97.6 SP02 100% RESP 16 Constitutional no acute distress ENMT Mouth: no TMJ clicking Thyromental Distance: > or= 3.5 Finger Breadths Mallampati Class: II Neck neck extension not limited Respiratory normal respiratory effort; no respiratory distress Auscultation: lungs clear to auscultation bilaterally; no wheezes Cardiovascular Rate/Rhythm: regular rate and regular rhythm Heart Sounds: no murmur Vessels: no carotid bruit Musculoskeletal Spine: no pain with cervical ROM Extremities: extremities normal to inspection Psychiatric Orientation: alert Lab Results Anesthesia Preop Results Results Anesthesia Widget: WBC 5.71 K/ul (4.8-10.8) 11/14/24 Hgb 12.5 g/dl (12.0-16.0) 11/14/24 Hct 37.2 % (37.0-47.0) 11/14/24 Plt 304 K/uL (130-400) 11/14/24 Na 134 mmol/L (136-145) L 11/14/24 K 4.1 mmol/L (3.5-5.1) 11/14/24 Cl 98 mmol/L (98-107) 11/14/24 CO2 29 mmol/L (21-32) 11/14/24 BUN 16 mg/dl (6-23) 11/14/24 Creat 0.75 mg/dl (0.6-1.2) 11/14/24 Glucose Level 84 mg/dl (70-99(Fasting)) 11/14/24 PT 10.3 Seconds (9.0-12.0) 11/14/24 PTT 26 Seconds (21-31) 11/14/24 INR 0.9 (0.9-1.1) 11/14/24 Blood Type A Positive 11/14/24 Antibody Screen NEGATIVE 11/14/24 Testing Electrocardiogram Date: 09/10/24 NSR at 94bpm Possible left atrial enlargement Nonspecific ST and T wave abnormality Prolonged QT Chest X-Ray Date: 11/14/24 FINDINGS: Heart size and pulmonary vasculature are normal. No consolidation or pleural effusion. Stable mild scoliosis. IMPRESSION: No acute findings. Cervical Spine Date: 11/14/24 FINDINGS: There is diffuse degenerative disc disease. There is grade 1 anterolisthesis of C3 on 4 which reduces with extension and recurs with flexion. There is mild retrolisthesis of C4 on 5 which mildly increases with extension and reduces with flexion. There is mild retrolisthesis of C5 on C6 which reduces with flexion. There is grade 1 anterolisthesis of C6 on C7 which remains stable on flexion and extension. No fracture seen. IMPRESSION: Cervical spine degenerative changes with translational motion as described. (Will send to PCP for continuity of care)
[~2024-11-22 06:38] MED LIST changes: -AMPH25CA PO; +BUPIVACAINE 0.5 % 5 MG/1 ML PF 10ML VIAL ONE; -CEFAZOLIN 2000MG IV PUSH 15 ML IV SCH; -LACTATED RINGER'S 1000ML 1,000 ML IV SCH; -METO25TA3 PO; -NSS 1000ML IV SCH; -RIZA10TA18 PO
--- NOTE | 2024-11-22 06:42 | History & Physical Bridge Note ---
Date of Service November 22, 2024 History & Physical Bridge Note I have examined the patient, reviewed the History & Physical and in the interval since the performance of the History & Physical I have noted the following changes of clinical significance: no changes noted
[2024-11-22] MEDS: dexAMETHasone**PF** 10 MG/ML VIAL IV SCH (07:16)
[2024-11-22] MEDS: METOCLOPRAMIDE HCL 10 MG TABLET PO SCH (07:16)
[2024-11-22] MEDS: LR 500ML BOLUS, THEN 15ML/HR IV SCH (07:16)
[2024-11-22] MEDS: CeleBREX 200 MG CAP PO SCH (07:16)
[2024-11-22] MEDS: FAMOTIDINE 20 MG TAB PO SCH (07:16)
[2024-11-22] MEDS: ACETAMINOPHEN 500 MG TAB PO SCH ×2 (07:16→14:00)
[2024-11-22] MEDS: LR 60ML/HR IV SCH (07:17)
[2024-11-22] MEDS ORDERED: LIDOCAINE 2% 2 ML VIAL/AMP(20MG/ML) INFIL ONE (07:26)
[2024-11-22] MEDS ORDERED: ONDANSETRON INJ 2 MG/ML 2 ML VIAL ONE (07:26)
[2024-11-22] MEDS ORDERED: MIDAZOLAM HCL 1 MG/ML 2ML VIAL ONE ×2 (07:27)
[2024-11-22] MEDS ORDERED: PROPOFOL IV EMULSION 10 MG/ML 20 ML VIAL IV ONE (07:27)
[2024-11-22] MEDS ORDERED: ONDANSETRON INJ 2 MG/ML 2 ML VIAL IV PRN ×2 (08:39→13:35)
[2024-11-22] MEDS ORDERED: ATROPINE SULFATE 0.1 MG/ML 10ML SYR IV PRN (08:39)
[2024-11-22] MEDS: TRANEXAMIC ACID 1,000 MG **IV Pre-op IV SCH (08:42)
[2024-11-22] MEDS ORDERED: KETAMINE HCL 10MG/ML SYR ONE (09:09)
[2024-11-22] MEDS: BUPIVACAINE/EPINEPHRINE 0.5% MPF 1:200,000 30 ML VIAL ONE (09:54)
--- NOTE | 2024-11-22 11:32 | Operative Report ---
PG Post Operative Report Pre & Post Diagnosis Operation Date: 11/22/24 08:50 Pre-Op Diagnosis: Right recurrent hip Dislocation, Status Post Total Right Hip Post-Op Diagnosis: Right recurrent hip Dislocation, Status Post Total Right Hip I identified the patient and participated in the time-out.: Yes Procedure Operation Date: 11/22/24 08:50 Actual Procedures p Revision Right Hip Arthroplasty with Constrained Liner(Right) - Zuhair Wilson MD Surgeon Zuhair Wilson MD Actionscript Developer Kenan Bragg PA-C, Dimas Higgins PA-C Estimated Blood Loss 100 Findings Consistent with Post-Op Diagnosis Operative findings revealed some diffuse soft tissue laxity. The implants appear well-fixed and well-positioned. Her hip was extremely stable preoperatively under anesthesia. No signs of infection. Specimens None Anesthesia Type Spinal MAC Complications none Disposition Accompanied Patient To Recovery: No Indications The patient is a 59-year-old female little over 2 years out from a right uncomplicated total hip arthroplasty. She did well postoperatively although she has she developed a recurrent instability of her hip. She has had 3 dislocations. Component position looked optimal. We have actually increased her offset maximize her head size at times to her to try and prevent this from happening. She does have a history of a previous back fusion as well. The patient was indicated for revision surgery to enhance stability of her hip. Description of Procedure Operative implants consist of: 1. Biomet 36 mm/+0 constrained cobalt chrome femoral head. 2. Biomet 50 mm outer diameter 36 mm inner diameter Cedar constrained liner. The patient was taken to the op room, identified, placed on the operating table in the supine position. All conductors were appropriately padded. IV antibiotics were by anesthesia team. A spinal anesthetic been implemented holding area. A Hinton catheter was placed in sterile fashion. The patient then placed in the left lateral cubitus position. An axillary roll was placed. A stool Birkett position was used for positioning. The right hip and leg were then prepped and draped in usual sterile fashion. A posterolateral approach to the right hip was then performed through a curvilinear incision centered over the greater trochanter. We used the previous incision site. This was not extended at all but we used the entire incision. Sharp dissection scalp through subcutaneous Cystemme of the IT band gluteal fascia. The IT band gluteal fascia was incised longitudinally in line with skin incision. It was dissected off the underlying vastus lateralis as there was some scarring. The hip was internally rotated. The posterior capsular repair had obviously failed. The hip was dislocated. It took quite a bit of all 4 send flexion and rotation to dislocate the hip. The femoral head was removed. I then released some tissues around the acetabulum. We spent quite a bit of time cleaning the all the soft tissue around the acetabular rim to expose the edges. The femur was retracted superiorly and anteriorly to get out of the way. We spent quite a bit of time cleaning this and once that we had adequate exposure of the apex hole protective services case worker was removed. We then trialed the hip. We used several different neck lengths and they eat the +3 and the plus extra weight 2 oh tight. We able to get this reduced with the neutral head. We elected to place these implants. Of note, we did extensively evaluate the acetabulum and femoral component and all left appeared very well-fixed without any signs of loosening. A constrained Biomet Cedar liner was then impacted in position for a 50 mm cup. A 0/36 mm articular ball was placed. The hip was then located. We manipulated this in order to reduce it appropriately. We spent quite a bit of time assuring the reduction was appropriate. We applied some longitudinal traction and there was no signs of gapping within the acetabulum. The hip was fully stable. Even with maximum flexion internal rotation we would not subluxate or dislocate. We then injected the with 60 cc of half percent Marcaine with epinephrine. I irrigated extensively. The posterior capsule was then root repaired to drawls in the posterior trochanter with #2 Tycron suture. The IT band gluteal fascia then closed in 1 PDS suture in a running fashion the subcutaneous tissue was then closed with 2 layers of the deep layer and #2 Vicryl suture. The subcutaneous tissues were then closed with 2-0 Dexon suture in buried interrupted fashion. Skin was closed skin ester. Leg was then cleaned and dried and a sterile dressing with Xeroform, 4 x 4's, ABD pad and foam tape was applied. The patient then transferred to the recovery room in stable condition. Patient tolerated procedure well and there are no complications. Kenan Bragg, and Dimas Higgins, both physician assistants, were present for the entire procedure. Their assistance was required for proper patient positioning, prepping and draping, surgical exposure, retraction, perform the technical details of the operation, placement of the implants, closure of the incision site, and placement of postoperative sterile bandage. I attest to the content of the Intraoperative Record and any orders documented therein. Any exceptions are noted below.
--- NOTE | 2024-11-22 12:09 | XRay Report ---
XR hip 1V RT w pelvis CLINICAL HISTORY: IN PACU - Post Surgical COMPARISON: 07/22/2022 FINDINGS: Right hip prosthesis shows no hardware complication. There is expected soft tissue gas. Sk in ester are present laterally. IMPRESSION: Unremarkable postoperative exam. ACT 112: Negative or not required by law. Electronically signed by: Dale Graham M.D. 11/22/2024 12:08 PM
--- NOTE | 2024-11-22 13:11 | Anesthesiology Progress Note ---
Date of Service November 22, 2024 Anesthesia Post Procedure Vital Signs Vital Signs: Temp Pulse Pulse Resp BP BP Pulse Ox 11/22/24 12:58 36.7 C 66 16 151/77 H 98 11/22/24 12:45 68 16 157/89 H 98 11/22/24 12:35 37.1 C 74 17 144/90 H 99 11/22/24 12:20 75 18 132/78 95 11/22/24 12:05 76 12 149/85 H 96 11/22/24 11:55 36.3 C L 74 12 152/78 H 97 11/22/24 11:45 66 14 144/77 H 97 11/22/24 11:35 72 16 141/79 H 94 11/22/24 11:25 78 14 139/77 95 11/22/24 11:18 36.0 C L 86 20 142/74 H 96 11/22/24 06:59 36.7 C 73 20 131/76 98 O2 Del Method 11/22/24 12:58 Room Air 11/22/24 12:45 Room Air 11/22/24 12:35 Room Air 11/22/24 12:20 Room Air 11/22/24 12:05 Room Air 11/22/24 11:55 Room Air 11/22/24 11:45 Room Air 11/22/24 11:35 Room Air 11/22/24 11:25 Room Air 11/22/24 11:18 Room Air 11/22/24 06:59 Room Air Notes Mental Status: alert / awake / arousable Patient Amnestic to Procedure: Yes Nausea / Vomiting: adequately controlled Pain: adequately controlled Airway Patency, RR, SpO2: stable & adequate BP & HR: stable & adequate Hydration State: stable & adequate Neuraxial Anesthesia: was administered and sensory block is resolving Anesthetic Complications: no major complications apparent
[2024-11-22] MEDS ORDERED: NON-FORMULARY MEDICATION (Rizatriptan [Maxalt-Mlt] 10 mg tablet,disintegrating) PO PRN (13:35)
[2024-11-22] MEDS ORDERED: diphenhydrAMINE Capsule 25 MG CAP PO PRN (13:35)
[2024-11-22] MEDS ORDERED: NALOXONE HCL 0.4 MG/1 ML VIAL/CARP IV PRN (13:35)
[2024-11-22] MEDS ORDERED: HYDROmorphone INJ 0.5 MG/0.5 ML SYR IV PRN (13:35)
[2024-11-22] MEDS ORDERED: ALUMINUM/MAGNESIUM SUSP 30 ML UDC PO PRN (13:35)
[2024-11-22] MEDS ORDERED: MAGNESIUM HYDROXIDE SUSP 30 ML UDC PO PRN (13:35)
[2024-11-22] MEDS ORDERED: METOCLOPRAMIDE HCL INJ 5 MG/ML 2 ML VIAL IV PRN (13:35)
[2024-11-22] MEDS: KETOROLAC 30 MG/ML VIAL IV SCH (13:59)
[2024-11-22] MEDS: SODIUM CHLORIDE 0.9% 1,000 ML IV SCH (14:00)
[2024-11-22] MEDS: ASCORBIC ACID 500 MG TAB PO SCH (16:19)
[2024-11-22] MEDS: TRANEXAMIC ACID / 0.7% NACL 1,000 MG/100 ML BAG IV SCH (19:15)
[2024-11-22] MEDS: SENNA 8.6 MG TAB PO SCH (20:45)
[2024-11-22] MEDS: DOCUSATE SODIUM 100 MG CAP PO SCH (20:45)
[2024-11-22] MEDS: ASPIRIN 81 MG ECTAB PO SCH (20:56)
[2024-11-22] MEDS ORDERED: SENNA 8.6 MG TAB PO SCH (21:00)
[2024-11-23 06:01] LABS: Hematocrit (blood only) 31.5 % (37.0-47.0); Hemoglobin 10.8 g/dl (12.0-16.0); Immature Granulocytes # (auto) 0.03 K/uL (0.01-0.20); Immature Granulocytes % (auto) 0.3 %; Mean Corpuscular Hemoglobin 32.4 pg (25.0-34.0); Mean Corpuscular Volume 94.6 fL (80.0-100.0); Platelet Count 278 K/uL (130-400); RDW Standard Deviation 45.7 fL (36.4-46.3); Red Blood Count 3.33 M/uL (4.20-5.40); White Blood Count 9.26 K/ul (4.8-10.8)
[2024-11-23 06:23] LABS: Anion Gap 6.0 (3-11); Blood Urea Nitrogen 15.0 mg/dl (6-23); Calcium 8.8 mg/dl (8.6-10.3); Carbon Dioxide 28.0 mmol/L (21-32); Chloride 102.0 mmol/L (98-107); Creatinine Clr Calc Pharmacy 74.0 ml/min; Glucose 100.0 mg/dl (70-99(Fasting)); Potassium 3.7 mmol/L (3.5-5.1); Sodium 136.0 mmol/L (136-145)
[2024-11-23 07:38] VITALS: RESP 16
[2024-11-23] MEDS: dexAMETHasone 10 MG in SYRINGE 0 ML IV SCH (07:53)
[2024-11-23] MEDS: SERTRALINE HCL 50 MG TABLET PO SCH (08:01)
[2024-11-23] MEDS: HYDROXYCHLOROQUINE SULFATE 200 MG TAB PO SCH (08:01)
[2024-11-23] MEDS: METOPROLOL SUCC 25MG EXT REL TAB PO SCH (08:01)
[2024-11-23] MEDS: MULTIVITAMIN TAB PO SCH (08:01)
[2024-11-23] MEDS: DEXTROAMPHETAMINE/AMPHETAMINE ER 10 MG CAP PO SCH (08:02)
--- NOTE | 2024-11-23 09:30 | Orthopedic Progress Note ---
Date of Service November 23, 2024 Assessment & Plan (1) S/p revision of right total hip: Plan 59-year-old woman POD# 1 s/p revision right total hip replacement, doing well overall. Pain is relatively well-controlled. Medically stable. Prosthetic hip is located. She is neurologically intact. Postoperative radiographs reviewed, with prosthesis well-appearing. Plan: 1. DVT prophylaxis w/ thigh-high TEDs, SCDs, ASA 81 mg BID. 2. PT/OT as tolerated. WBAT on R LE. Right posterolateral approach total hip precautions/protocol. 3. Pain control doing well with current pain regimen. 4. Disposition - pending PT/OT. Anticipate discharge POD #2 vs. POD #3. 5. F/u as scheduled w/ first post-op visit. Subjective Patient is POD# 1 s/p revision right total hip arthroplasty by Dr. Wilson on 11/22/2024 due to multiple dislocation events. Patient says her pain is relatively well-controlled this morning. Denies CP, SOB, N/V, R LE paresthesia. She has not yet worked with therapy, but is ready to do so this morning. Review of Systems All systems reviewed & are unremarkable except as noted in HPI & below. Physical Exam GENERAL: AA&Ox3, NAD. Pleasant, affect is calm. Sitting in bedside chair, dressed in street clothes, and appears comfortable. RESPIRATORY: Normal respiratory effort with no signs of distress. CHEST/AXILLA: Chest movement symmetrical. No deformities noted. CARDIOVASCULAR: No edema noted. SKIN: [place], warm and dry. MS/EXTREMITY: Hip dressing c/d/i, no saturation noted. BENTLEY hose donned. Thigh is soft, supple. Leg lengths are equal. + ankle dorsi/plantarflexion. NVI distally. Calf soft/NT. PT/DP pulses intact, 2+. Results & Data Results & Data Laboratory Results Laboratory Results - last 24 hr 11/23/24 05:37 WBC 9.26 RBC 3.33 L Hgb 10.8 L Hct 31.5 L MCV 94.6 MCH 32.4 MCHC 34.3 RDW Std Deviation 45.7 RDW Coeff of Allie 13.2 Plt Count 278 MPV 9.3 L Immature Gran % (Auto) 0.3 Neut % (Auto) 75.0 Lymph % (Auto) 15.9 [place] % (Auto) 8.3 Eos % (Auto) 0.1 Baso % (Auto) 0.4 Neut # (Auto) 6.94 H Lymph # (Auto) 1.47 [place] # (Auto) 0.77 H Eos # (Auto) 0.01 Baso # (Auto) 0.04 Immature Gran # (Auto) 0.03 Sodium 136 Potassium 3.7 Chloride 102 Carbon Dioxide 28 Anion Gap 6 BUN 15 Creatinine 0.65 Est Cr Clr Drug Dosing 74.0 eGFR 100.73 BUN/Creatinine Ratio 23.1 H Glucose 100 H Calcium 8.8 Diagnostic Findings Hip/Pelvis X-Ray 11/22/24 11:29 XR hip 1V RT w pelvis CLINICAL HISTORY: IN PACU - Post Surgical COMPARISON: 07/22/2022 FINDINGS: Right hip prosthesis shows no hardware complication. There is expected soft tissue gas. Skin ester are present laterally. IMPRESSION: Unremarkable postoperative exam. ACT 112: Negative or not required by law. Electronically signed by: Dale Graham M.D. 11/22/2024 12:08 PM PG Care Time/CCT Total # of Minutes Spent Total Time Spent with Patient: Total time spent is greater than 50% in coordination of care (as documented) at patient's floor/unit and/or counseling patient: [place] [address] Post Operative Follow-Up Patient Type Established History Problem Focused Exam Problem Focused Medical Decision Making Straight Forward Diagnoses S/p revision of right total hip Z96.641
[2024-11-24 07:26] VITALS: BP 156/74; PULSE 75; TEMP 98.1; O2SAT 100
--- NOTE | 2024-11-24 07:31 | Orthopedic Progress Note ---
Date of Service November 24, 2024 Assessment & Plan (1) S/p revision of right total hip: Plan: 59-year-old female postop day 2 from a revision total hip replacement for instability to a constrained liner. She is doing pretty well. Pains controlled. She is neurologically intact. Hip is located. Plan: 1. DVT prophylaxis including thigh-high teds, SCDs, aspirin twice a day. 2. PT/OT. Weight-bear as tolerated. Right total hip protocol. 3. Pain control. Doing okay with current pain regimen. 4. Disposition. Plan is to discharge to home with some home health likely later today after therapy. Will (2) S/P total right hip arthroplasty: (3) Hip dislocation, right: (4) Lumbar stenosis: Admission and Anticipated Discharge Date Admission Date: November 22, 2024 Subjective 59-year-old female postop day 2 from a revision total hip replacement to a constrained liner for instability. She is doing well. I did wake her this morning. Pain is controlled. She is hoping to go home. Physical Exam Physical Exam: Physical nation was a pleasant middle-aged female. I did wake her this morning. Examination of the right hip and leg reveals dressing be clean dry and intact. Thigh is soft and supple. Leg lengths appear equal. She is neurologically intact. Results & Data Vital Signs (Past 12 Hours) Vital Signs Temp Pulse Pulse Resp BP Pulse Ox O2 Del Method 11/24/24 07:22 36.7 C 75 16 156/74 H 100 Room Air 11/23/24 21:10 36.8 C 71 16 164/82 H 99 Room Air
== END 2024-11-24 11:03 | disposition home health service (06) | DRG 468 ==
LOC: ASU 06:38 → 3E 11:29